=== PATIENT | female | born 1975 | race Two or more races ===

== ENCOUNTER 2021-04-05 07:15 | Outpatient (CLI) | payer OTHER | END 2021-04-05 07:23 | disposition home or self-care (01) | LOC: LAB 07:15 | DX: U07.1 COVID-19 (principal) ==

== ENCOUNTER 2021-04-14 11:17 | Outpatient (CLI) | payer OTHER | END 2021-04-14 18:00 | disposition home or self-care (01) | LOC: LAB | DX: Z20.822 Contact with and (suspected) exposure to COVID-19 (principal); Z11.52 Encounter for screening for COVID-19 ==

== ENCOUNTER 2021-05-17 12:51 | Outpatient (CLI) | payer OTHER | END 2021-05-17 15:57 | disposition home or self-care (01) | LOC: LAB 12:51 | PROVIDERS: ATTEND General Practice | DX: Z20.822 Contact with and (suspected) exposure to COVID-19 (principal) ==